=== PATIENT | male | born 2005 | race Caucasian/White ===

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

== ENCOUNTER 2024-01-24 20:16 | Emergency (ER) | payer BC, OTHER, SELFPAY ==
[2024-01-24] VITALS (17 sets, daily range): BP systolic 149–220; BP diastolic 79–98; PULSE 75–118; TEMP 36.7; O2SAT 99–100; BMI 35.9
--- NOTE | 2024-01-24 20:30 | ECG_ITS ---
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
--- NOTE | 2024-01-24 20:43 | ED_ITS ---
Documented by User: SANDIE Rogers 01/24/24 20:57 HPI - Ear Problem General Chief complaint: Ear Stated complaint: Earache Time Seen by Provider: 01/24/24 20:17 Source: patient Mode of arrival: walk-in Limitations: no limitations History of Present Illness HPI Narrative: Patient is a 18-year-old male who presents to the emergency department for left ear pain. He states for the last 5 days he has had pain in the left ear and for the last 2 days has felt as though there is liquid in the eardrum. There has been no drainage from the left ear. He has no other upper respiratory symptoms. No fevers or vomiting. He has been using [id number] [employer] eardrops without improvement. On triage and my initial interview, the patient was noted to be tachycardic and hypertensive. Mother states he has a history of elevated blood pressure readings but he has never been evaluated for this in his PCP office or had any further testing or treatment. Patient denies headaches, visual changes, peripheral paresthesias. Related Data Previous Rx's ?Medication ?Instructions ?Recorded amlodipine 5 mg tablet (Norvasc) 5 mg PO DAILY #10 tabs 01/24/24 amoxicillin 500 mg capsule 500 mg PO TID 10 days #30 caps 01/24/24 Allergies Allergy/AdvReac Type Severity Reaction Status Date / Time No Known Drug Allergies Allergy Verified 01/24/24 20:28 Review of Systems ROS Constitutional Denies: fever or chills Eyes Denies: change in vision Ears, nose, mouth, and throat Reports: ear pain; Denies: throat pain or nasal congestion Cardiovascular Denies: chest pain Respiratory Denies: shortness of breath or cough Gastrointestinal Denies: nausea or vomiting Integumentary/Breast Denies: rash Neurological Denies: headache Hematologic/Lymphatic Denies: easy bruising or easy bleeding PFSH PFSH Social History Smoking status: Never smoker Exam Narrative Exam Narrative: Gen.: Awake, alert, in no distress Head: Normocephalic, atraumatic ENT: Moist mucous membranes, Left TM is mildly erythematous, left external canal is edematous, erythematous and tender. No mastoid tenderness or drainage. Respiratory: No respiratory distress, lungs clear bilaterally Cardio: Regular rate and rhythm Extremities: Moves extremities equally Psych: Normal mood and affect Neuro: No focal neuro deficit Skin: Warm, dry, intact Constitutional Vital Signs, click to edit/add: Last Vital Signs Temp 98.1 F 01/24/24 20:22 Pulse 118 H 01/24/24 20:22 Resp 16 01/24/24 20:22 BP 210/98 H 01/24/24 20:22 Pulse Ox 99 01/24/24 20:22 Course Vital Signs Vital signs: Vital Signs Temperature 98.1 F 01/24/24 20:22 Pulse Rate 118 H 01/24/24 20:22 Respiratory Rate 16 01/24/24 20:22 Blood Pressure 210/98 H 01/24/24 20:22 Pulse Oximetry 99 01/24/24 20:22 Temperature 98.1 F 01/24/24 20:22 Pulse Rate 118 H 01/24/24 20:22 Respiratory Rate 16 01/24/24 20:22 Blood Pressure 210/98 H 01/24/24 20:22 Pulse Oximetry 99 01/24/24 20:22 Medical Decision Making MDM Narrative Medical decision making narrative: 2056: Patient noted to be tachycardic and hypertensive at initial interview. IV was established, EKG was obtained and lab studies are pending. Patient will be treated for early otitis media/otitis externa with amoxicillin and Ciprodex drops. Case is turned over to attending physician at this time. Medical Records Medical records reviewed: Yes I reviewed the patient's medical records Lab Data Lab results reviewed: Yes I reviewed the patient's lab results ECG Data Attestation: I personally reviewed and interpreted this ECG as follows: (Tachy cardia at a rate of 105, T wave inversion noted in the inferior and lateral leads. No acute ST elevation or ectopy. EKG reviewed by attending physician) Discharge Plan Discharge Stand Alone Forms: Portal Instructions Chief Complaint: Ear Clinical Impression: Otitis externa, Otitis media, Hypertension Patient Disposition: Home, Self-Care Time of Disposition Decision: 22:21 Condition: Good Mode of Transportation: Private Vehicle Prescriptions / Home Meds: New amoxicillin 500 mg capsule 500 mg PO TID 10 Days Qty: 30 0RF amlodipine [Norvasc] 5 mg tablet 5 mg PO DAILY Qty: 10 0RF Print Language: [place] Instructions: Swimmer's Ear (ED), Ear Infection (ED), Hypertension (ED) Referrals: YUDELKA NOEL [Primary Care Provider] - 1 week Documented by User: Rikki Pool MD 01/24/24 22:25 HPI - Ear Problem General Chief complaint: Ear Stated complaint: Earache Time Seen by Provider: 01/24/24 20:17 Related Data Previous Rx's ?Medication ?Instructions ?Recorded amlodipine 5 mg tablet (Norvasc) 5 mg PO DAILY #10 tabs 01/24/24 amoxicillin 500 mg capsule 500 mg PO TID 10 days #30 caps 01/24/24 Allergies Allergy/AdvReac Type Severity Reaction Status Date / Time No Known Drug Allergies Allergy Verified 01/24/24 20:28 PFSH PFSH Social History Smoking status: Never smoker Exam Constitutional Vital Signs, click to edit/add: Last Vital Signs Temp 98.1 F 01/24/24 20:22 Pulse 118 H 01/24/24 20:22 Resp 16 01/24/24 20:22 BP 210/98 H 01/24/24 20:22 Pulse Ox 99 01/24/24 20:22 Course Vital Signs Vital signs: Vital Signs Temperature 98.1 F 01/24/24 20:22 Pulse Rate 118 H 01/24/24 20:22 Respiratory Rate 16 01/24/24 20:22 Blood Pressure 210/98 H 01/24/24 20:22 Pulse Oximetry 99 01/24/24 20:22 Temperature 98.1 F 01/24/24 20:22 Pulse Rate 118 H 01/24/24 20:22 Respiratory Rate 16 01/24/24 20:22 Blood Pressure 210/98 H 01/24/24 20:22 Pulse Oximetry 99 01/24/24 20:22 Medical Decision Making MDM Narrative Medical decision making narrative: 2056: Patient noted to be tachycardic and hypertensive at initial interview. IV was established, EKG was obtained and lab studies are pending. Patient will be treated for early otitis media/otitis externa with amoxicillin and Ciprodex drops. Case is turned over to attending physician at this time. JK 10:25 PM blood pressures improved with medications given. He has otitis media and otitis externa. He was dispensed Cipro eardrops and was prescribed amoxicillin. He was also prescribed Norvasc. His mother describes that every time he goes to the doctor, which is not that often, his blood pressure was high but he has never been put on blood pressure medication. He will have prompt follow-up with PCP. Treatment diagnosis and follow-up were discussed with his mother and the patient. Differential Diagnosis Differential Diagnosis: Hypertension, acute kidney injury, otitis media, otitis externa Critical Care Time Critical Care Time Critical Care Time: Yes Total Critical Care Time: 35 Attestation: Due to the high probability of sudden and clinically significant deterioration in the patient's condition he/she required the highest level of my preparedness to intervene urgently I provided critical care time including documentation time, medication orders and management, reevaluation, vital sign assessment, ordering and reviewing of lab tests, ordering and reviewing of x-ray studies, and admission orders. Aggregate critical care time is 35 minutes including only time during which I was engaged in work directly related to his/her care and did not include time spent treating other patients simultaneously. Discharge Plan Discharge Stand Alone Forms: Portal Instructions Chief Complaint: Ear Clinical Impression: Otitis externa, Otitis media, Hypertension Patient Disposition: Home, Self-Care Time of Disposition Decision: 22:21 Condition: Good Mode of Transportation: Private Vehicle Prescriptions / Home Meds: New amoxicillin 500 mg capsule 500 mg PO TID 10 Days Qty: 30 0RF amlodipine [Norvasc] 5 mg tablet 5 mg PO DAILY Qty: 10 0RF Print Language: [place] Instructions: Swimmer's Ear (ED), Ear Infection (ED), Hypertension (ED) Referrals: YUDELKA NOEL [Primary Care Provider] - 1 week
[2024-01-24] MEDS: 0.9 % SODIUM CHLORIDE 1,000 ML 1000 ML IV (20:58)
[2024-01-24] MEDS: AMOXICILLIN 500 MG CAPSULE PO (20:58)
[2024-01-24] MEDS: CIPROFLOXACIN HCL/DEXAMETH 0.3%/0.1% OTIC SUSP 150 DROP/7.5 ML BOTTLE OT (20:59)
[2024-01-24] MEDS: ENALAPRILAT DIHYDRATE 1.25 MG/ML VIAL IV (20:59)
[2024-01-24] MEDS: LABETALOL HCL 20 MG/4 ML SYRINGE 10 MG IVP (20:59)
[2024-01-24 21:11] LABS: Basophils Percent Auto 0.4 % (0.2-2.0); Eosinophils Absolute Auto 0.1 10^3/uL (0.0-0.7); Eosinophils Percent Auto 0.9 % (0.9-7.0); Hematocrit 44.7 % (42.0-54.0); Hemoglobin 14.7 g/dL (14.0-18.0); Immature Granulocytes Abs Auto 0.03 10^3/uL (0.00-0.03); Immature Granulocytes Pct Auto 0.3 % (0.0-0.5); Lymphocytes Absolute Auto 2.3 10^3/uL (1.2-3.8); Lymphocytes Percent Auto 23.3 % (20.5-60.0); Mean Corpuscular HGB Conc 32.9 g/dL (29.9-35.2); Mean Corpuscular Hemoglobin 28.9 pg (25.9-34.0); Mean Corpuscular Volume 87.8 fL (80.0-94.0); Mean Platelet Volume 11.4 fL (9.5-13.5); Monocytes Absolute Auto 1.3 10^3/uL (0.3-0.8); Monocytes Percent Auto 12.9 % (1.7-12.0); Neutrophils Absolute Auto 6.1 10^3/uL (1.4-6.5); Neutrophils Percent Auto 62.2 % (43.0-75.0); Platelet Count 284 10^3/uL (150-450); Red Blood Count 5.09 10^6/uL (4.70-6.10); White Blood Count 9.8 10^3/uL (4.0-11.0)
[2024-01-24 21:23] LABS: BUN Creatinine Ratio 14.4; Calcium 9.4 mg/dL (8.5-10.1); Carbon Dioxide 28.4 mmol/L (21.0-32.0); Chloride 105 mmol/L (98-107); Estimated GFR (African America >60 (>=60); Estimated GFR (Non-African Ame >60 (>=60); Glucose 101 mg/dL (74-106); Potassium 3.4 mmol/L (3.5-5.1); Sodium 142 mmol/L (136-145)
[2024-01-24 21:31] LABS: Troponin I High Sensitivity <4.0 pg/mL (4.0-76.1)
== END 2024-01-24 22:36 | disposition home or self-care (01) ==
PROVIDERS: Physician Assistant; Emergency Provider Emergency Medicine; PCP Family Medicine
DX: H60.92 Unspecified otitis externa, left ear (principal); I10 Essential (primary) hypertension
CPT/HCPCS: 36415; 80048; 84484; 85025; 93005; 96374; 96375; 99285